=== PATIENT | male | born 1970 | race American Indian/Alaskan Native ===

== ENCOUNTER 2017-06-11 17:07 | Emergency (ER) | payer MEDICARE ==
[2017-06-11 17:45] VITALS: BP 115/76
[2017-06-11] MEDS ORDERED: NORCO 7.5/325 PO ONE (20:38)
--- NOTE | 2017-06-11 20:38 | Emergency Department Report ---
Blank Doc - Documentation Documentation: Patient is a 47-year-old [place] male who states that yesterday work he was walking slipped and fell and his left knee buckled backwards. Patient fell. Patient has noted swelling and pain and is having difficulty bearing weight. X- rays will be ordered.
--- NOTE | 2017-06-11 21:41 | XRay Report ---
FINAL REPORT PROCEDURE: XR KNEE 3V LT TECHNIQUE: Left knee radiographs, AP, lateral and sunrise views. CPT 93324 HISTORY: left knee pain COMPARISON: No prior studies are available for comparison. FINDINGS: Fracture (s) and/or Dislocation(s): There is a cortical chip fracture of the medial femoral condyle. Bony structures are otherwise intact.. Alignment: Normal . Joint space(s): There is mild degenerative arthrosis of the medial knee compartment.. Soft tissues: There is mild prepatellar soft tissue swelling. There is no joint effusion.. Bone mineralization: Normal . Foreign bodies: None . IMPRESSION: There is a cortical chip fracture of the medial femoral condyle. Bony structures are otherwise intact.. There is mild degenerative arthrosis of the medial knee compartment.. There is mild prepatellar soft tissue swelling. There is no joint effusion.. .
--- NOTE | 2017-06-11 22:58 | Emergency Department Report ---
HPI - General Chief Complaint: Extremity Injury, Lower Time Seen by Provider: 06/11/17 20:15 - HPI HPI: Patient is a 47-year-old male who presents to ED complaining of left knee pain AND fall at work yesterday. Patient states he was at work when he was walking down steps and lost her footing and fell on his knee. Patient states symptoms had some left knee pain and some swelling around the knee. He states pain is localized to the to the knee. He denies any laceration states sustained minor abrasions to the right knee. She states pain with bearing weight to the left. ED Past Medical Hx - Past Medical History Previous Medical History?: Yes Hx Hypertension: Yes (ECHO: EF 55-60%) Hx Renal Disease: Yes (Q , , Sat, polycystic kidney dz) Additional medical history: DIALYSIS [id number] - Surgical History Past Surgical History?: Yes Additional Surgical History: SHUNT left forearm, Kidney transplant 11-06-2016 - Social History Smoking Status: Current Some Day Smoker Substance Use Type: Alcohol, Marijuana - Medications Home Medications: Home Medications Medication Instructions Recorded Confirmed Last Taken Type Esomeprazole Magnesium [NexIUM] 80 mg PO BID 09/27/13 12/19/13 Unknown History Furosemide 80 mg PO BID 09/27/13 12/19/13 Unknown History Sevelamer Carbonate [Renvela] 800 mg PO TIDWM 09/27/13 12/19/13 Unknown History Verapamil Sr [Calan SR] 120 mg PO DAILY #30 tablet 12/26/13 Unknown Rx Cyclobenzaprine [Flexeril] 10 mg PO QHS PRN #24 tablet 06/11/17 Unknown Rx HYDROcodone/ACETAMINOPHEN [[place] 1 each PO Q6H PRN #12 tablet 06/11/17 Unknown Rx 7.5-325 Tablet] Ibuprofen [Motrin] 800 mg PO Q8HR PRN #30 tablet 06/11/17 Unknown Rx ED Review of Systems ROS: Stated complaint: LEG PAIN Other details as noted in HPI Constitutional: denies: chills, fever Eyes: denies: eye pain, eye discharge, vision change ENT: denies: ear pain, throat pain Respiratory: denies: cough, shortness of breath, wheezing Cardiovascular: denies: chest pain, palpitations Endocrine: no symptoms reported Gastrointestinal: denies: abdominal pain, nausea, diarrhea Genitourinary: denies: urgency, dysuria Musculoskeletal: arthralgia (knee). denies: back pain, joint swelling Skin: denies: rash, lesions Neurological: denies: headache, weakness, paresthesias Psychiatric: denies: anxiety, depression Hematological/Lymphatic: denies: easy bleeding, easy bruising Physical Exam - Physical Exam Vital Signs: Vital Signs 06/11/17 17:40 Temperature 97.9 F Pulse Rate 87 Respiratory 18 Rate Blood Pressure 115/76 O2 Sat by Pulse 98 Oximetry Physical Exam: GENERAL: Alert and oriented x3, no apparent distress, Normal Gait, atraumatic. HEAD: Head is normocephalic and a-traumatic. NECK: Supple. Non edematous, No lymphadenopathy or thyromegaly. No C-spine tenderness, full range of motion LUNGS: Symetrical with respiration, No wheezing, no rales or crackles, CTAB. HEART: S1, S2 present, regular rate and rhythm without murmur, no rubs, no gallops. Non tender to palpation BACK: Full range of motion, no spinal tenderness, Tenderness to palpation of the trapezius muscles and latissimus dorsi muscles of the back EXTREMITIES/MUSCULOSKELETAL: No cyanosis, clubbing, rash, lesions or edema. Full ROM bilaterally. UE/LE Pulses 2+ bilaterally. LE and UE 5+ strength bilaterally, anterior lateral aspect of knee tenderness to palpation NEUROLOGIC: The patient is cooperative with no focal neurologic deficits. SKIN: Warm and dry, No lesions, No ulceration or induration present. ED Course Vital Signs 06/11/17 17:40 Temperature 97.9 F Pulse Rate 87 Respiratory 18 Rate Blood Pressure 115/76 O2 Sat by Pulse 98 Oximetry ED Medical Decision Making - Radiology Data Radiology results: report reviewed, image reviewed FINAL REPORT PROCEDURE: XR KNEE 3V LT TECHNIQUE: Left knee radiographs, AP, lateral and sunrise views. CPT 98427 HISTORY: left knee pain COMPARISON: No prior studies are available for comparison. FINDINGS: Fracture (s) and/or Dislocation(s): There is a cortical chip fracture of the medial femoral condyle. Bony structures are otherwise intact.. Alignment: Normal . Joint space(s): There is mild degenerative arthrosis of the medial knee compartment.. Soft tissues: There is mild prepatellar soft tissue swelling. There is no joint effusion.. Bone mineralization: Normal . Foreign bodies: None . IMPRESSION: There is a cortical chip fracture of the medial femoral condyle. Bony structures are otherwise intact.. There is mild degenerative arthrosis of the medial knee compartment.. There is mild prepatellar soft tissue swelling. There is no joint effusion.. . Transcribed By: CO Dictated By: SANDRA RAMACHANDRAN MD Electronically Authenticated By: SANDRA RAMACHANDRAN MD Signed Date/Time: 06/11/172136 - Medical Decision Making Presents with a fracture of the knee ED course: Patient given pain medication while in ED. X-rays sh fracture she reported above Discussed this findings with the patient. I discussed with the patient follow-up with orthopedic doctor. Patient was put in knee immobilizer prior to discharge Patient is in no acute distress and no neuro deficit Patient vital signs are normal. Critical care attestation.: If time is entered above; I have spent that time in minutes in the direct care of this critically ill patient, excluding procedure time. ED Disposition Clinical Impression: Knee pain, acute Qualifiers: Laterality: left Qualified Code(s): M25.562 - Pain in left knee Fracture, femur, condyle Qualifiers: Encounter type: initial encounter Fracture type: closed Fracture alignment: nondisplaced Disposition: DC- TO HOME OR SELFCARE Is pt being admited?: No Does the pt Need Aspirin: No Condition: Stable Instructions: Leg Fracture (ED), Knee Pain (ED), Knee Exercises (GEN) Additional Instructions: Make sure to follow up with the primary care physician as discussed. Take all your medications as you've been prescribed. If you have any worsening symptoms or develop new symptoms please return to ED immediately. Prescriptions: Cyclobenzaprine [Flexeril] 10 mg PO QHS PRN #24 tablet PRN Reason: Muscle Spasm HYDROcodone/ACETAMINOPHEN [[place] 7.5-325 Tablet] 1 each PO Q6H PRN #12 tablet PRN Reason: pain Ibuprofen [Motrin] 800 mg PO Q8HR PRN #30 tablet PRN Reason: Pain Referrals: HAIM MORAN MD [Primary Care Provider] - 3-5 Days [facility] [Provider Group] - 3-5 Days RILEY RAGLAND MD [Staff Physician] - 3-5 Days Forms: Work/School Release Form(ED) Time of Disposition: 23:07
== END 2017-06-11 23:55 | disposition home or self-care (01) ==
LOC: ED 17:07
DX: S72.435A Nondisplaced fracture of medial condyle of left femur, initial encounter for closed fracture (principal); I10 Essential (primary) hypertension; F17.200 Nicotine dependence, unspecified, uncomplicated; F12.10 Cannabis abuse, uncomplicated